=== PATIENT | male | born 1970 ===

== ENCOUNTER 2020-12-03 19:19 | Emergency (ER) | payer SELFPAY ==
[~2020-12-03] VITALS: Ht 167.6 cm; Wt 77.3 kg
[2020-12-03] MEDS ORDERED: HALOPERIDOL 5 MG TABLET PO ONE (22:00)
[2020-12-03] MEDS ORDERED: LORazepam 2 MG TABLET PO ONE (22:00)
[2020-12-04 06:13] VITALS: BP 110/70
== END 2020-12-04 06:17 | disposition home or self-care (01) ==
LOC: EMS 19:23
DX: F15.10 Other stimulant abuse, uncomplicated (principal); F11.10 Opioid abuse, uncomplicated; F17.210 Nicotine dependence, cigarettes, uncomplicated
CPT/HCPCS: 99285; Z7502; Z7610